=== PATIENT | male | born 2000 | race Caucasian/White ===

== ENCOUNTER 2021-06-07 13:46 | Emergency (ER) | payer OTHER ==
[~2021-06-07] VITALS: Ht 175.3 cm; Wt 82.6 kg
[2021-06-07 15:53] VITALS: O2SAT 100
[2021-06-07] MEDS ORDERED: ONDA4TAB6 PO (16:21)
[2021-06-07 16:36] VITALS: BP 141/86
[2021-06-07 16:49] LABS: RSV AMPLIFICATION NEGATIVE (NEGATIVE)
== END 2021-06-07 16:53 | disposition home or self-care (01) ==
LOC: M ED 13:46
DX: R50.9 Fever, unspecified (principal); R51.9 Headache, unspecified; R19.7 Diarrhea, unspecified; Z20.822 Contact with and (suspected) exposure to COVID-19